=== PATIENT | female | born 1980 | race Caucasian/White ===

== ENCOUNTER 2017-11-27 17:25 | Emergency (ER) | payer OTHER ==
[2017-11-27 20:13] VITALS: BP 113/69
[2017-11-27] MEDS ORDERED: Nitrofurantoin Macrocrystals* 50 MG CAP PO ONE (20:53)
--- NOTE | 2017-11-27 20:56 | UC ---
Complaint Female HPI - HPI Summary HPI Summary: Pt is c/o bladder pressure and hesitation with her urination since yesterday. She denies abdominal pain, fever, vaginal discharge. She had a uti once in the past but that was long ago. - History Of Current Complaint Chief Complaint: UCGU Stated Complaint: UTI SYMPTOMS Time Seen by Provider: 11/27/17 20:49 Hx Obtained From: Patient Hx Last Menstrual Period: 10/31/17 ?: No Onset/Duration: Gradual Onset Timing: Constant Severity Initially: Mild Severity Currently: None Pain Intensity: 0 Aggravating Factor(s): Nothing Alleviating Factor(s): Nothing Associated Signs And Symptoms: Negative: Fever, Back Pain, Vaginal Bleeding/ Discharge, Vaginal Discharge - Allergies/Home Medications Allergies/Adverse Reactions: Allergies Allergy/AdvReac Type Severity Reaction Status Date / Time No Known Allergies Allergy Verified 11/27/17 20:13 Home Medications: Home Medications Cranberry Conc/C/Bacill Coag [Cranberry Tablet] 1 each PO DAILY 11/27/17 [ History Confirmed 11/27/17] PMH/Surg Hx/FS Hx/Imm Hx Previously Healthy: Yes - Surgical History Surgical History: Yes Surgery Procedure, Year, and Place: 3 c sections - Social History Alcohol Use: Rare Substance Use Type: None Smoking Status (MU): Never Smoked Tobacco Review of Systems Constitutional: Negative Skin: Negative Eyes: Negative ENT: Negative Respiratory: Negative Cardiovascular: Negative Gastrointestinal: Negative Genitourinary: Dysuria Is Patient Immunocompromised?: No All Other Systems Reviewed And Are Negative: Yes Physical Exam Triage Information Reviewed: Yes Appearance: Well-Appearing Vital Signs: Initial Vital Signs Temp 98.2 F 11/27/17 20:09 Pulse 70 11/27/17 20:09 Resp 16 11/27/17 20:09 BP 113/69 11/27/17 20:09 Pulse Ox 99 11/27/17 20:09 Vital Signs Reviewed: Yes Eyes: Positive: Conjunctiva Clear ENT: Positive: Normal ENT inspection Neck: Positive: Supple Respiratory: Positive: Lungs clear, Normal breath sounds, No respiratory distress Cardiovascular: Positive: RRR, No Murmur Abdomen Description: Positive: Nontender, No Organomegaly, Soft. Negative: CVA Tenderness (R), CVA Tenderness (L) Bowel Sounds: Positive: Present Neurological: Positive: Alert Skin Exam: Normal Diagnostics - Laboratory Diagnostic Studies Completed/Ordered: u/a= leukocytes and nitrites Complaint Female Dx - Course Course Of Treatment: u/a c/w uti. will send culture and tx with macrobid - Differential Dx/Diagnosis Provider Diagnoses: urinary tract infection Discharge - Discharge Plan Condition: Stable Disposition: HOME Prescriptions: Fluconazole [Diflucan 150 MG (NF)] 150 mg PO ONCE #1 tab Nitrofurantoin Macrocrystal [Nitrofurantoin] 100 mg PO BID #14 capsule Patient Education Materials: Urinary Tract Infection in Women (DC) Referrals: Sapphire Stanton MD [Medical Doctor] - 7 Days
== END 2017-11-27 21:14 | disposition home or self-care (01) ==
LOC: UCCORT 17:25
DX: N39.0 Urinary tract infection, site not specified (principal); B96.20 Unspecified Escherichia coli [E. coli] as the cause of diseases classified elsewhere; Z87.440 Personal history of urinary (tract) infections
CPT/HCPCS: 81003; 87077; 87086; 87186; 99202; A9270-GY; G0463